=== PATIENT | male | born 1995 ===

== ENCOUNTER 2023-07-04 18:31 | Emergency (ER) | payer SELFPAY | END 2023-07-04 19:19 | disposition home or self-care (01) | LOC: DL.ED 18:31 | DX: S62.396A Other fracture of fifth metacarpal bone, right hand, initial encounter for closed fracture (principal); W22.8XXA Striking against or struck by other objects, initial encounter | CPT/HCPCS: 29125; 73120-RT; 99282; 99283 ==

== ENCOUNTER 2024-04-22 02:55 | Emergency (ER) | payer MEDICAID ==
[2024-04-22 03:15] LABS: BASOPHILS PERCENT AUTO 0.3 % (0.0-1.0); EOSINOPHILS PERCENT AUTO 5.5 % (1.0-3.0); HEMATOCRIT 46.2 % (40.0-54.0); HEMOGLOBIN 15.3 g/dL (14.0-18.0); LYMPHOCYTES PERCENT AUTO 38.1 % (20.5-50.1); MEAN CORPUSCULAR HEMOGLOBIN 29.3 pg (27.0-34.0); MEAN CORPUSCULAR HGB CONC 33.1 g/dL (33.0-35.0); MEAN CORPUSCULAR VOLUME 88.5 fL (80-100); MONOCYTES PERCENT AUTO 6.6 % (2-8); NEUTROPHILS PERCENT AUTO 49.5 % (42.2-75.2); PLATELET COUNT,PLT 229 10^3/uL (150-450); RED BLOOD CELL COUNT 5.22 10^6/uL (4.6-6.2); WHITE BLOOD CELL COUNT,WBC 12.1 10^3/uL (5.0-10.0)
[2024-04-22] MEDS: Ketorolac 30 MG/ML SDV IVPUSH ONE (03:20)
[2024-04-22] MEDS: Pantoprazole 40 MG Vial IVPUSH ONE (03:24)
[2024-04-22 03:31] LABS: A/G RATIO 1.2; ALBUMIN 4.2 g/dL (3.4-5.0); BILIRUBIN TOTAL 0.5 mg/dL (0.2-1.0); BUN/CREATININE RATIO 19.4 (No establ ref range); CALCIUM 9.3 mg/dL (8.5-10.1); CREATININE 0.93 mg/dL (0.70-1.30); EST CRCL DRUG DOSING (CG) 141.34 mL/min; PROTEIN TOTAL,TP 7.6 g/dL (6.4-8.2)
[2024-04-22] MEDS: Lactated Ringers 1,000 ML IV ONE (03:32)
[2024-04-22] MEDS: Ondansetron 4 MG/2 ML SDV IVPUSH ONE (03:41)
== END 2024-04-22 08:05 | disposition left against medical advice (07) ==
LOC: DL.ED 02:55
DX: R10.11 Right upper quadrant pain (principal); R10.13 Epigastric pain
CPT/HCPCS: 36415; 74176; 80053; 83690; 85025; 96361; 96374; 96375; 99284; J1885; J2405; J2470; J7120